=== PATIENT | female | born 2005 | race Hispanic/Latino ===

== ENCOUNTER 2025-07-20 14:05 | Emergency (ER) | payer OTHER, SELFPAY ==
[2025-07-20] MEDS ORDERED: Ibuprofen 200 MG TAB ONE (14:45)
== END 2025-07-20 15:52 | disposition home or self-care (01) ==
LOC: BURERS 14:05
DX: M25.511 Pain in right shoulder (principal); M25.561 Pain in right knee; M79.631 Pain in right forearm; M54.9 Dorsalgia, unspecified; V89.2XXA Person injured in unspecified motor-vehicle accident, traffic, initial encounter
CPT/HCPCS: 72100; 99284